=== PATIENT | female | born 2000 | race Caucasian/White ===

== ENCOUNTER 2021-03-04 11:53 | Emergency (ER) | payer MEDICAID ==
[~2021-03-04] VITALS: Ht 154.9 cm; Wt 52.0 kg
[2021-03-04 16:16] LABS: BASOPHILS % 0.2 % (0.0-2.0); EOSINOPHILS % 0.1 % (0.0-5.0); HEMATOCRIT. 41.9 % (36.0-48.0); HEMOGLOBIN. 14.6 g/dL (12.0-16.0); LYMPHOCYTES % 13.1 % (20.0-50.0); MEAN CORPUSCULAR HEMOGLOBIN 29.8 pg (28.0-32.0); MEAN CORPUSCULAR VOLUME 85.4 fL (81.0-99.0); MEAN PLATELET VOLUME 8.9 fl (7.4-10.4); MONOCYTES % 4.7 % (2.0-8.0); NEUTROPHILS % 81.9 % (40.0-76.0); PLATELET 244 x1000/uL (130-400); RED BLOOD CELL COUNT 4.91 mill/uL (4.2-5.4); RED CELL DISTRIBUTION WIDTH 13.1 % (11.6-14.6)
[2021-03-04 16:28] LABS: CHLORIDE 105 mEq/L (98-107)
[2021-03-04 16:46] LABS: HCG SCREEN NEGATIVE
[2021-03-04] MEDS ORDERED: ACETAMINOPHEN 325MG TABLET PO ONE (20:00)
[2021-03-04 20:20] VITALS: BP 122/54
== END 2021-03-04 20:25 | disposition home or self-care (01) ==
LOC: ER 11:53
DX: R55 Syncope and collapse (principal)
CPT/HCPCS: 36415; 70544; 70553; 80053; 81025; 84703; 85025; 99285